=== PATIENT | female | born 1980 | race Caucasian/White ===

== ENCOUNTER 2019-06-24 09:41 | Emergency (ER) | payer OTHER ==
[~2019-06-24] VITALS: Ht 152.4 cm; Wt 95.3 kg
[2019-06-24] MEDS ORDERED: ALBUTEROL SULFAT4 MG (10:01)
== END 2019-06-24 12:37 | disposition home or self-care (01) ==
LOC: ER 09:41
DX: J45.998 Other asthma (principal); J98.8 Other specified respiratory disorders